=== PATIENT | female | born 1930 | race Caucasian/White ===

== ENCOUNTER 2018-12-23 10:15 | Emergency (ER) | payer OTHER ==
[~2018-12-23] VITALS: Ht 152.4 cm; Wt 72.6 kg
[2018-12-23 11:18] LABS: ABSOLUTE NEUTROPHILS 8.3 thou/uL (1.4-8.2); BASOPHILS 0.6 % (0.0-2.0); EOSINOPHILS 0.8 % (0.0-3.0); HEMATOCRIT 38.5 % (37.0-47.0); LYMPHOCYTES 12.8 % (24.0-44.0); MCH 30.5 pg (26.0-34.0); MCHC 33.9 g/dL (28.0-37.0); MONOCYTES 5.2 % (1.0-8.0); PLATELET COUNT 162 thou/uL (150-400); POLYS 80.6 % (36.0-66.0); RBC 4.28 mil/uL (4.20-5.00); RDW 13.8 % (10.5-14.5); WBC 10.3 thou/uL (4.0-11.0)
[2018-12-23 11:22] LABS: ANION GAP 8 mmol/L (7-16); BUN 11 mg/dL (7-18); CALCIUM 9.4 mg/dL (8.5-10.1); CHLORIDE 102 mmol/L (98-107); CO2 27 mmol/L (21-32); CREATININE 0.5 mg/dL (0.6-1.0); GLUCOSE 118 mg/dL (74-106); POTASSIUM 3.9 mmol/L (3.5-5.1); SODIUM 137 mmol/L (136-145)
[2018-12-23 11:30] LABS: TROPONIN-I <0.06 ng/mL (<0.06)
[2018-12-23] MEDS ORDERED: SYNTHROID75 MCG PO (11:43)
[2018-12-23] MEDS ORDERED: VITAMIN E400 UNIT PO (11:44)
[2018-12-23] MEDS ORDERED: UNICOMPLEX M TA1 TA1 PO (11:45)
--- NOTE | 2018-12-23 13:51 | EKG ---
[facility] [employer] [address] ELECTROCARDIOGRAM REPORT Name: LILLIAM ALVARENGA Room #: [facility] Chirag#: [id number] ������������������ Admission: 12/23/18 ������������������ Attend Phys: Discharge: ������������������ Date of : 34 Report #: [id number] ����������������������������������������������������������������� [id number] THIS REPORT FOR: //name// [facility] ED Test Date: 2018-12-23 Test Time: 10:20:47 Pat Name: LILLIAM ALVARENGA Department: Room: Gender: F Fitter And Turner: NGUYEN : 1930 Requested By: Marta King Order Number: [id number] MD: Brandan Bonner Measurements Intervals [place] Rate: 102 P: 33 SD: 162 QRS: 37 QRSD: 83 T: 68 QT: 362 QTc: 472 Interpretive Statements Sinus tachycardia Nonspecific ST and T wave abnormality Borderline prolonged QT interval Compared to ECG 12/29/1992 12:27:00 Sinus rhythm no longer present Heart rate has increased Electronically Signed On 12-23-2018 13:51:47 CDT by Brandan Bonner [email or web address] ��������������������������������������������� <ELECTRONICALLY SIGNED> ���������������������������������������� By: Brandan Bonner MD, [facility] ��������������������������������������������� 12/23/18 1351 1020 1020 Brandan Bonnre MD, [facility] /EPI
[2018-12-23 15:56] VITALS: BP 134/65
== END 2018-12-23 15:59 | disposition home or self-care (01) ==
LOC: ER 10:15
PROVIDERS: Emergency Medicine
DX: J06.9 Acute upper respiratory infection, unspecified (principal); I10 Essential (primary) hypertension; Z88.0 Allergy status to penicillin; Z91.018 Allergy to other foods; Z98.890 Other specified postprocedural states

== ENCOUNTER 2019-07-27 17:40 | Inpatient (IN) | payer OTHER ==
[~2019-07-27] VITALS: Ht 154.9 cm; Wt 73.9 kg
[~2019-07-27 17:40] MED LIST: SYNTHROID75 MCG PO; UNICOMPLEX M TA1 TA1 PO; VITAMIN E400 UNIT PO
[2019-07-27 17:41] VITALS: BP 151/83
[2019-07-27 18:20] LABS: BASOPHILS 0.7 % (0.0-2.0); EOSINOPHILS 1.9 % (0.0-3.0); HEMATOCRIT 38.2 % (37.0-47.0); HEMOGLOBIN 12.9 gm/dL (12.0-15.0); LYMPHOCYTES 25.6 % (24.0-44.0); MCH 30.9 pg (26.0-34.0); MCHC 33.9 g/dL (28.0-37.0); MONOCYTES 7.2 % (1.0-8.0); PLATELET COUNT 136 thou/uL (150-400); POLYS 64.6 % (36.0-66.0); WBC 4.6 thou/uL (4.0-11.0)
[2019-07-27 18:28] LABS: ANION GAP 9 mmol/L (7-16); BUN 12 mg/dL (7-18); CALCIUM 9.5 mg/dL (8.5-10.1); CHLORIDE 102 mmol/L (98-107); CO2 27 mmol/L (21-32); CREATININE 0.5 mg/dL (0.6-1.0); GLUCOSE 134 mg/dL (74-106); SODIUM 138 mmol/L (136-145)
[2019-07-27 18:29] LABS: POTASSIUM 3.7 mmol/L (3.5-5.1)
[2019-07-27 18:38] LABS: ALBUMIN 3.4 g/dL (3.4-5.0); SGOT 32 U/L (15-37); SGPT 29 U/L (30-65); TOTAL BILIRUBIN 0.8 mg/dL (<0.1-1.0); TOTAL PROTEIN 7.5 g/dL (6.4-8.2); TROPONIN-I <0.06 ng/mL (<0.06)
[2019-07-27 18:56] LABS: URINE BILIRUBIN NEGATIVE (Negative); URINE BLOOD TRACE (Negative); URINE CLARITY CLEAR; URINE COLOR YELLOW; URINE GLUCOSE-RANDOM* NEGATIVE (Negative); URINE KETONES NEGATIVE (Negative); URINE LEUKOCYTES-REFLEX TRACE (Negative); URINE NITRITE-REFLEX NEGATIVE (Negative); URINE PROTEIN (DIPSTICK) NEGATIVE (Negative); URINE SPECIFIC GRAVITY 1.015 (1.005-1.035)
[2019-07-27 20:44] VITALS: BP 151/83
[2019-07-27 21:25] VITALS: BP 155/71
[2019-07-27 21:40] VITALS: BP 177/89
[2019-07-28 00:27] VITALS: BP 135/67
[2019-07-28 04:18] VITALS: BP 142/60
[2019-07-28] MEDS ORDERED: [UNRECOGNIZED DRUG - OTHER] PAD (04:56)
[2019-07-28] MEDS ORDERED: BENEFIBER152 GM PO (04:59)
[2019-07-28 05:04] LABS: CALCIUM 8.7 mg/dL (8.5-10.1); CREATININE 0.5 mg/dL (0.6-1.0); POTASSIUM 3.7 mmol/L (3.5-5.1)
[2019-07-28 05:11] LABS: CHOLESTEROL 170 mg/dL (<200); HDL CHOLESTEROL 60 mg/dL (>40); LDL CHOLESTEROL 103 mg/dL (<100); TC:HDL 2.8 Ratio (Not establshd); TRIGLYCERIDE 37 mg/dL (<150); VLDL 7 mg/dL (<40)
[2019-07-28 05:13] LABS: SERUM ASSESSMENT Clear
[2019-07-28 05:36] LABS: FOLIC ACID 19.8 ng/mL (8.6-58.9); TSH 1.899 uIU/mL (0.358-3.740)
--- NOTE | 2019-07-28 06:42 | NUR ---
EARLY EVENING ADMIT FROM ER. ADMIT COMPLETED, MED REC FINISHED, CARE PLAN INITIATED. PT UP WITH STANDBY AND SHE USES CANE AT HOME. NON SLIP SOCKS BEING WORN BY PT. POC WITH IVF GTT. PT IS A/O X4. VSS. HOURLY ROUNDING.
[2019-07-28 07:43] VITALS: BP 153/78
--- NOTE | 2019-07-28 10:22 | EKG ---
[address] [place] [address] ELECTROCARDIOGRAM REPORT Name: LILLIAM ALVARENGA Room #: 356-P ADM IN M.R.#: [id number] Admission: 07/27/19 Attend Phys: Zane Sinclair MD Discharge: Date of : 32 Report #: [id number] THIS REPORT FOR: //name// [facility] ED Test Date: 2019-07-27 Test Time: 17:50:09 Pat Name: LILLIAM ALVARENGA Department: Room: 356 Gender: F [employer] Leader: WILL : 1930 Requested By: Virgilio Benoit Order Number: [id number] MD: Simon Solorzano Measurements Intervals [place] Rate: 99 P: 40 VT: 172 QRS: 38 QRSD: 84 T: 58 QT: 367 QTc: 471 Interpretive Statements Sinus rhythm Borderline T wave abnormalities Compared to ECG 12/23/2018 10:20:47 T-wave abnormality now present Sinus tachycardia no longer present ST (T wave) deviation no longer present Electronically Signed On 07-28-2019 10:21:52 MANAGER CULTURE by Simon Solorzano [email or web address] <ELECTRONICALLY SIGNED> By: Simon Solorzano MD 07/28/19 1021 49 175 Simon Solorzano MD /SONA
[2019-07-28 11:22] VITALS: BP 155/82
[2019-07-28 16:29] VITALS: BP 152/90
[2019-07-28 20:40] VITALS: BP 150/90
[2019-07-29 03:11] VITALS: BP 160/87
--- NOTE | 2019-07-29 03:18 | NUR ---
SLEPT MOST OF SHIFT. UP IN ROOM WITH CANE WITH STEADY GAIT. WORKING ON GOALS AND PLAN OF CARE FOR NOC. PROGRESSING SLOWLY TOWARDS DISCHARGE GOALS. MAINTAIN SAFE ENVIRONMENT. DENIES COMPLAINTS AT THIS TIME. STATES HEADACHE IS GONE. FALL PRECAUTIONS REMOVED. CONTINUE TO ASSES CLOSELY.
[2019-07-29 08:10] VITALS: BP 147/71
[2019-07-29] MEDS ORDERED: ADULT ASPIRIN R81 MG PO (08:52)
--- NOTE | 2019-07-29 09:49 | 2DMMODE ---
[facility] [address] [place] [address] 2 D/M-MODE ECHOCARDIOGRAM Name: LILLIAM ALVARENGA Room #: 356-P ADM IN M.R.#: [id number] Admission: 07/27/19 Attend Phys: Tyron Mtz Discharge: Date of : 32 Report #: [id number] THIS REPORT FOR: //name// APPROVED REPORT Study performed: 07/29/2019 08:12:09 EXAM: Comprehensive 2D, Doppler, and color-flow Echocardiogram Patient Location: Bedside Room #: 356 Status: routine BSA: 1.71 HR: 77 bpm BP: 160/87 mmHg Other Information Study Quality: Adequate Indications Palpitations Near syncope 2D Dimensions RVDd: 26.05 mm IVSd: 13.13 (7-11mm) LVOT Diam: 19.94 (18-24mm) LVDd: 41.72 mm PWd: 11.27 (7-11mm) Ascending Ao: 31.02 (22-36mm) LVDs: 30.75 (25-40mm) Aortic Root: 30.75 mm IVC: 24.00 mm Volumes Left Atrial Volume (Systole) Single Plane 4CH: 34.17 mL Single Plane 2CH: 49.89 mL LA ESV Index: 29.00 mL/m2 Aortic Valve AoV Peak Zafar.: 1.29 m/s AO Peak Gr.: 6.62 mmHg LVOT Max P.15 mmHg LVOT Max V: 0.89 m/s KIKO Vmax: 2.15 cm2 AI Vmax: 4.82 m/s AI Gregg: 4.13 m/s2 AI PHT: 338.23 ms Mitral Valve [facility] [address] [place] [address] 2 D/M-MODE ECHOCARDIOGRAM Name: LILLIAM ALVARENGA Room #: 356-P [facility] IN .R.#: [id number] Admission: 07/27/19 Attend Phys: Tyron Mtz Discharge: Date of : 32 Report #: [id number] E/A Ratio: 0.7 MV Decel. Time: 205.32 ms MV E Max Zafar.: 0.87 m/s MV A Zafar.: 1.21 m/s MV PHT: 59.54 ms IVRT: 148.79 ms Pulmonary Valve PV Peak Zafar.: 0.97 m/s PV Peak Gr.: 3.81 mmHg Pulmonary Vein P Vein S: 0.58 m/s P Vein A: 0.38 m/s P Vein D: 0.29 m/s P Vein A Dur.: 128.0 msec P Vein S/D Ratio: 2.00 Tricuspid Valve TR Peak Zafar.: 2.52 m/s RAP Estimate: 10.00 mmHg TR Peak Gr.: 25.43 mmHg PA Pressure: 35.00 mmHg Left Ventricle The left ventricle is normal size. Mild concentric left ventricular hypertrophy. The left ventricular systolic function is normal. The left ventricular ejection fraction is within the normal range. LVEF is 55-60%. Mild diastolic dysfunction is present (impaired relaxation pattern). Right Ventricle The right ventricle is normal size. The right ventricular systolic function is normal. Atria The left atrium size is normal. The right atrium size is normal. Aortic Valve The Aortic valve is sclerotic. Mild to moderate aortic regurgitation. There is no aortic valvular stenosis. Mitral Valve The mitral valve is normal in structure. Mild mitral regurgitation. No evidence of mitral valve stenosis. Tricuspid Valve The tricuspid valve is normal in structure. Mild tricuspid regurgitation. PAP is estimated at 35 mmHg. [facility] [place] [address] 2 D/M-MODE ECHOCARDIOGRAM Name: LILLIAM ALVARENGA Room #: 356-P [facility] IN M.R.#: [id number] Admission: 07/27/19 Attend Phys: Tyron Mzt Discharge: Date of : 32 Report #: [id number] Pulmonic Valve The pulmonary valve is normal in structure. Mild to moderate pulmonic regurgitation. Great Vessels The aortic root is normal in size. IVC is dilated and collapses >50% with inspiration. Pericardium There is no pericardial effusion. <Conclusion> The left ventricle is normal size. The left ventricular systolic function is normal. Mild diastolic dysfunction is present (impaired relaxation pattern). The right ventricle is normal size. The left atrium size is normal. The Aortic valve is sclerotic. Mild to moderate aortic regurgitation. Mild mitral regurgitation. Mild tricuspid regurgitation. PAP is estimated at 35 mmHg. <ELECTRONICALLY SIGNED> By: Simon Solorzano MD 07/29/19948 8 8 Simon Solorzano MD /INF
--- NOTE | 2019-07-29 09:55 | NUR ---
ASSESSMENT: CM REVIEWED CHART AND MET WITH PATIENT AT THE BEDSIDE. PT WAS ADMITTED WITH NEAR SYNCOPE. PT REPORTS THAT SHE LIVES ALONE IN A SR INDEPENDENT APT. PT REPORTS THAT SHE AMBULATES INDEPENDENTLY BUT DOES USE A CANE AT TIMES. PT REPORTS THAT IS VERY INDEPENDENT AND REPORTS THAT SHE HAS NOT HAD HH IN THE PAST NOR BEEN TO A SNF. PTS DAUGHTERS ARE ALSO PRESENT. PT REPORTS HAVING A GRAB BAR AND SHOWER CHAIR AND IS INDEPENDENT WITH ADLS. CM DISCUSSED ROLE. PT STATES SHE WILL HAVE NO NEEDS AT DISCHARGE, PT IS POSSIBLE DISCHARGE HOME TODAY. CM WILL CONTINUE TO FOLLOW.
[2019-07-29 12:46] VITALS: BP 147/71
[2019-07-29 13:49] VITALS: BP 147/71
--- NOTE | 2019-07-29 13:50 | NUR ---
Assumed care approx. 0700 this AM. Gabrielle completed this AM. Discharge orders obtained from Dr. Rodriguez. Only prescription ordered for 81 mg aspirin daily x30 days. Patient refused saying she can't take aspirin due to chronic nose bleeds. Dr. Rodriguez notified. Discharge packet went over with patient and medicare rights sheet signed. Patient leaving with daughter. All belongings noted to be with patient.
== END 2019-07-29 14:15 | disposition home or self-care (01) | DRG 312 ==
LOC: ER 17:40 → EROBS 19:49 → 3W 19:49 → ENTRNSPT 07-29 13:44 → EDTRNSPTSTS 07-29 13:46 → 3W 07-29 14:15
PROVIDERS: Emergency Medicine; Nurse Practitioner Family; ADMIT Hospitalist
DX: R55 Syncope and collapse (principal); E03.9 Hypothyroidism, unspecified; F32.9 Major depressive disorder, single episode, unspecified; N39.41 Urge incontinence; I10 Essential (primary) hypertension; Z88.0 Allergy status to penicillin; Z79.82 Long term (current) use of aspirin; Z79.899 Other long term (current) drug therapy; Z72.89 Other problems related to lifestyle
CPT/HCPCS: 10879

== ENCOUNTER 2020-01-22 15:10 | Emergency (ER) | payer OTHER ==
[~2020-01-22] VITALS: Ht 154.9 cm; Wt 72.6 kg
--- NOTE | ~2020-01-22 | EMS ---
[facility] [address] [place] [address] EMS Patient Care Report Name: LILLIAM ALVARENGA Room #: REG ESPERANZA Beard#: [id number] Admission: 01/22/20 Attend Phys: Discharge: Date of : 32 Report #: [id number] THIS REPORT FOR: //name// Report Transmitted: 01/22/2020 16:25 EMS Care Summary [facility] Incident [id number] @ 01/22/2020 14:37 Incident Location [address] [place] [address] Patient LILLIAM ALVARENGA Female, 89 Years 1930 Patient Address [address] [place] [address] [place] [address] Patient History Hypertension (HTN),Thyroid Disease, Patient Allergies Penicillin allergy, Patient Medications Amlodipine, Synthroid, Chief Complaint Weakness Disposition Transported No Lights/[place] Dispatch Reason Sick Person Transported To [facility] Narrative AOS to find patient seated in her chair, she states that she is having increased weakness that has been getting worse over the week. [facility] [address] [place] [address] EMS Patient Care Report Name: LILLIAM ALVARENGA Room #: REG Chirag#: [id number] Admission: 01/22/20 Attend Phys: Discharge: Date of : 32 Report #: [id number] Patient has a history of issues with hypertension as well as thyroid issues. She takes few medications that are self administered. Patient today tells family on scene that she has just been feeling weaker than normal. She has had minimal to no relief in all that time. She finally decided with family on scene that it would be best for her to be seen at the ED, so soon ems is called to the location. Upon our arrival patient is seen seated in her chair, she is being attended to by FD who arrived prior to our arrival. Vitals had been obtained and she is found to be WNL. She is soon transferred to the cot and is then sat down and secured. Once on the cot she is then secured via x4 safety straps and then moved to the unit and loaded in. Once inside the unit vitals are obtained and she is found to be WNL. While en route to the ED there is no further need for interventions and she is found to be able to remain stable. Care was transferred to ED staff upon our arrival to the facility.. Initial Vitals @14:51P: 102,SpO2: 95, @14:56P: 101,SpO2: 93, @14:58P: 102,R: 18,BP: 135/83,GCS: 15,SpO2: 95,Revised Trauma: 12, @14:48P: 103,R: 18,BP: 143/77,GCS: 15,SpO2: 93,Revised Trauma: 12, Assessments @HYDRAULICS ENGINEER@14:51MENTAL:No Abnormalities,SKIN:HEENT:LUNG SOUNDS:ABDOMEN:PELVIS//GI:EXTREMITIES:Left Arm: No Abnormalities,Right Arm: No Abnormalities,Left Leg: No Abnormalities,Right Leg: No Abnormalities,PULSE:NEURO:No Abnormalities, Impression Generalized Weakness Procedures @14:51ALS AssessmentResponse: UnchangedSucceeded Timeline 14:31,Call Received 14:31,Psap Call 14:35,Initial Responder On Scene 14:37,Dispatched 14:39,En Route 14:41,On Scene 14:42,At Patient 14:47,Depart Scene 14:48,BP: 143/77 M,PULSE: 103,RR: 18 R,SPO2: 93 Ox,ETCO2: ,BG: ,PAIN: ,GCS: 15, 14:51,ALS Assessment,Response: UnchangedSucceeded, 14:51,BP: / M,PULSE: 102,RR: R,SPO2: 95 Ox,ETCO2: ,BG: ,PAIN: ,GCS: , 14:56,BP: / M,PULSE: 101,RR: R,SPO2: 93 Ox,ETCO2: ,BG: ,PAIN: ,GCS: , [facility] [address] [place] [address] EMS Patient Care Report Name: LILLIAM ALVARENGA Room #: REG ESPERANZA Beard#: [id number] Admission: 01/22/20 Attend Phys: Discharge: Date of : 32 Report #: [id number] 14:58,BP: 135/83 M,PULSE: 102,RR: 18 R,SPO2: 95 Ox,ETCO2: ,BG: ,PAIN: ,GCS: 15, 15:04,At Destination 15:12,Call Closed Disclaimer v1.1 Copyright 2020 [employer] This EMS Care Summary contains data elements from the applicable legal record (which may be displayed differently). It is designed to provide pertinent information for the following purposes: continuity of care, clinical quality, and state data reporting. The complete legal record is available to ED staff and administrators of the receiving hospital in ES's Patient Tracker. All data is provided "as is."
[~2020-01-22 15:10] MED LIST changes: +ADULT ASPIRIN R81 MG PO; +BENEFIBER152 GM PO; +[UNRECOGNIZED DRUG - OTHER] PAD
[2020-01-22 15:33] LABS: URINE BILIRUBIN NEGATIVE (Negative); URINE BLOOD 1+ (Negative); URINE CLARITY CLEAR; URINE COLOR YELLOW; URINE GLUCOSE-RANDOM* NEGATIVE (Negative); URINE KETONES NEGATIVE (Negative); URINE LEUKOCYTES-REFLEX TRACE (Negative); URINE NITRITE-REFLEX NEGATIVE (Negative); URINE PROTEIN (DIPSTICK) NEGATIVE (Negative); URINE UROBILINOGEN 0.2 E.U./dl (0.2-1.0)
[2020-01-22 15:46] LABS: BACTERIA-REFLEX None Seen /HPF (None Seen); CASTS None Seen /LPF (None Seen); CRYSTALS None Seen /LPF (None Seen); SQUAMOUS None Seen /LPF (0-3); URINE RBC 0-2 Rare /HPF (0-2); URINE WBC-REFLEX 0-5 Rare /HPF (0-5)
[2020-01-22] MEDS ORDERED: VITAMIN D31250 MCG PO (15:47)
[2020-01-22 16:02] LABS: ABSOLUTE NEUTROPHILS 2.8 thou/uL (1.4-8.2); BASOPHILS 0.7 % (0.0-2.0); EOSINOPHILS 1.7 % (0.0-3.0); HEMATOCRIT 36.4 % (37.0-47.0); HEMOGLOBIN 12.6 gm/dL (12.0-15.0); LYMPHOCYTES 21.4 % (24.0-44.0); MCH 31.1 pg (26.0-34.0); MCHC 34.5 g/dL (28.0-37.0); MONOCYTES 10.5 % (1.0-8.0); PLATELET COUNT 132 thou/uL (150-400); POLYS 65.7 % (36.0-66.0); RBC 4.05 mil/uL (4.20-5.00); RDW 13.9 % (10.5-14.5); WBC 4.2 thou/uL (4.0-11.0)
[2020-01-22 16:10] LABS: ANION GAP 6 mmol/L (7-16); BUN 12 mg/dL (7-18); CALCIUM 8.9 mg/dL (8.5-10.1); CHLORIDE 101 mmol/L (98-107); CO2 28 mmol/L (21-32); CREATININE 0.5 mg/dL (0.6-1.0); GLUCOSE 106 mg/dL (74-106); POTASSIUM 4.1 mmol/L (3.5-5.1); SODIUM 135 mmol/L (136-145)
[2020-01-22 16:20] LABS: ALBUMIN 3.4 g/dL (3.4-5.0); LIPASE 60 U/L (73-393); SGOT 41 U/L (15-37); SGPT 31 U/L (30-65); TOTAL PROTEIN 7.7 g/dL (6.4-8.2); TROPONIN-I <0.06 ng/mL (<0.06)
[2020-01-22 17:31] VITALS: BP 129/65
--- NOTE | 2020-01-23 07:59 | EKG ---
[facility] [place] [address] ELECTROCARDIOGRAM REPORT Name: LILLIAM ALVARENGA Room #: DEP [facility]#: [id number] Admission: 01/22/20 Attend Phys: Discharge: 01/22/20 Date of : 32 Report #: [id number] THIS REPORT FOR: cc: Lissy Weiss MD, Melanie MD Lundgren,Brandan Wayne MD [facility] ~ THIS REPORT FOR: //name// [facility] ED Test Date: 2020-01-22 Test Time: 15:24:32 Pat Name: LILLIAM ALVARENGA Department: Room: Gender: Ct Mri Technologist: [facility] : 1930 Requested By: Virgilio Benoit Order Number: [id number] MD: Brandan Bonner Measurements Intervals [place] Rate: 95 P: 25 [place]: 172 QRS: 29 QRSD: 81 T: 81 QT: 345 QTc: 434 Interpretive Statements Sinus rhythm Nonspecific T abnormalities, lateral leads Compared to ECG 07/27/2019 17:50:09 No significant changes Electronically Signed On 01-23-2020 7:58:05 CDT by Brandan Bonner [email or web address] <ELECTRONICALLY SIGNED> By: Brandan Bonner MD, [facility] 01/23/20 0758 1524 1524 Brandan oBnner MD, [facility] /EPI
== END 2020-01-22 17:06 | disposition home or self-care (01) ==
LOC: ER 15:10
PROVIDERS: Emergency Medicine
DX: R53.1 Weakness (principal); R42 Dizziness and giddiness; Z88.0 Allergy status to penicillin; Z79.899 Other long term (current) drug therapy

== ENCOUNTER 2021-01-19 06:51 | Inpatient (IN) | payer OTHER ==
[~2021-01-19] VITALS: Ht 152.4 cm; Wt 73.6 kg
[~2021-01-19 06:51] MED LIST changes: +VITAMIN D31250 MCG PO
[2021-01-19 06:55] VITALS: BP 126/69
[2021-01-19 07:34] LABS: ABSOLUTE NEUTROPHILS 3.3 thou/uL (1.4-8.2); BASOPHILS 0.6 % (0.0-2.0); EOSINOPHILS 1.9 % (0.0-3.0); HEMATOCRIT 36.1 % (37.0-47.0); HEMOGLOBIN 12.5 gm/dL (12.0-15.0); LYMPHOCYTES 23.1 % (24.0-44.0); MCH 31.1 pg (26.0-34.0); MCHC 34.5 g/dL (28.0-37.0); MCV 90.3 fL (80.0-100.0); MONOCYTES 7.6 % (1.0-8.0); PLATELET COUNT 167 thou/uL (150-400); POLYS 66.8 % (36.0-66.0); RDW 14.1 % (10.5-14.5)
[2021-01-19 08:30] LABS: ANION GAP 8 mmol/L (7-16); BUN 10 mg/dL (7-18); CALCIUM 8.8 mg/dL (8.5-10.1); CHLORIDE 106 mmol/L (98-107); CO2 27 mmol/L (21-32); CREATININE 0.5 mg/dL (0.6-1.0); GLUCOSE 111 mg/dL (74-106); POTASSIUM 3.6 mmol/L (3.5-5.1); SODIUM 141 mmol/L (136-145)
--- NOTE | 2021-01-19 08:31 | EKG ---
[address] [place] [address] ELECTROCARDIOGRAM REPORT Name: LILLIAM ALVARENGA 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
[2021-01-19 08:40] LABS: ALBUMIN 3.3 g/dL (3.4-5.0); SGOT 20 U/L (15-37); SGPT 23 U/L (14-59); TOTAL BILIRUBIN 1.6 mg/dL (0.2-1.0); TOTAL PROTEIN 6.9 g/dL (6.4-8.2); TROPONIN-I <0.06 ng/mL (<0.06)
--- NOTE | 2021-01-19 09:41 | NUR ---
CONTACT ATTEMPTED Genevieve ELIECER DIXON DAUGHTER [facility], , MESSAGE LEFT REQUESTING RETURN CALL.
[2021-01-19 10:47] LABS: URINE BILIRUBIN NEGATIVE (Negative); URINE BLOOD TRACE (Negative); URINE CLARITY CLEAR; URINE COLOR YELLOW; URINE GLUCOSE-RANDOM* NEGATIVE (Negative); URINE KETONES NEGATIVE (Negative); URINE NITRITE-REFLEX NEGATIVE (Negative); URINE PROTEIN (DIPSTICK) NEGATIVE (Negative); URINE UROBILINOGEN 0.2 E.U./dl (0.2-1.0)
[2021-01-19 10:49] LABS: URINE LEUKOCYTES-REFLEX 1+ (Negative)
[2021-01-19 11:05] LABS: CASTS None Seen /LPF (None Seen); SQUAMOUS 0-3 Few /LPF (0-3)
[2021-01-19 11:11] LABS: BACTERIA-REFLEX None Seen /HPF (None Seen); URINE RBC 1-2 Rare /HPF (NONE SEEN); URINE WBC-REFLEX 0-5 Rare /HPF (0-5)
[2021-01-19 11:13] LABS: FOLIC ACID 46.1 ng/mL (8.6-58.9)
[2021-01-19 14:07] VITALS: BP 131/71
[2021-01-19 16:19] VITALS: BP 131/71
[2021-01-19 16:33] VITALS: BP 131/71
[2021-01-19 16:49] VITALS: BP 125/82
[2021-01-19 19:14] VITALS: BP 134/62
--- NOTE | 2021-01-19 19:53 | NUR ---
Admitted from ER due to weakness; transferred to bed safely. On MS, not on telemetry; no complains and signs of chest pain, crushing sensation and heaviness during admission. On room air. Vital signs stable. On NPO- for abdominal ultrasound; then may have heart healthy diet after ultrasound. Continent of bowel and bladder, able to use bedside commode or go to the toilet with standby assist using cane and gait belt. Falls bundle in place. With NS at 75cc/hr, infusing well at R FA. SCDS in place. No nausea, no vomiting and no abdominal pain noted. Admission assessment, history and education done- acknowledged understanding. To continue monitoring patient. No complains of pain made during assessment. Pt showed that she has a heart monitor placed at ER by cardio group this AM. Belongings documented. To continue monitoring patient.
[2021-01-20 03:30] VITALS: BP 133/69
--- NOTE | 2021-01-20 04:00 | NUR ---
ASSUMED PT CARE AT AROUND 1915 HRS. PT IS ALERT AND ORIENTED. PT DENIES ANY CHEST PAIN OR PRESSURE. HOLTER MONITOR IN PLACE.PT REQUIRES SBA TO THE BATHROOM, VOIDING OKAY-NO EPISODES OF DIZZINESS. AFEBRILE. ROOM AIR-NO RESP DISTRESS.CALLS APPROPRIATELY.
[2021-01-20 05:23] LABS: ABSOLUTE NEUTROPHILS 3.5 thou/uL (1.4-8.2); BASOPHILS 0.6 % (0.0-2.0); EOSINOPHILS 2.4 % (0.0-3.0); HEMATOCRIT 35.3 % (37.0-47.0); HEMOGLOBIN 11.9 gm/dL (12.0-15.0); LYMPHOCYTES 27.7 % (24.0-44.0); MCH 31.1 pg (26.0-34.0); MCHC 33.7 g/dL (28.0-37.0); MCV 92.2 fL (80.0-100.0); MONOCYTES 7.7 % (1.0-8.0); PLATELET COUNT 143 thou/uL (150-400); POLYS 61.6 % (36.0-66.0); RBC 3.83 mil/uL (4.20-5.00); WBC 5.7 thou/uL (4.0-11.0)
[2021-01-20 05:43] LABS: CALCIUM 8.3 mg/dL (8.5-10.1); CREATININE 0.7 mg/dL (0.6-1.0); MAGNESIUM 1.7 mg/dL (1.8-2.4); POTASSIUM 4.1 mmol/L (3.5-5.1)
[2021-01-20 07:52] VITALS: BP 130/65
--- NOTE | 2021-01-20 13:03 | NUR ---
ASSUMED PT CARE THIS AM. PT VSS, A&0X4. PATIENT PLEASANT AND ABLE TO MAKE NEEDS KNOWN. PATIENT REMAINS CONTINENT, UP WITH ASSIST TO THE BATHROOM. PATIENT REPORING NO PAIN AT THIS TIME. REPORTING NO NUMBNESS, TINGLING, AND NO CHEST PAIN. ON ROOM AIR. MEDS GIVEN WITHOUT ISSUE. IV PATENT, FLUIDS DISCONTINUED THIS DAY. FALL PRECAUTIONS ARE IN PLACE.
[2021-01-20] MEDS ORDERED: BAYER CHEWABLE81 MG PO (13:22)
[2021-01-20] MEDS ORDERED: LEVOFLOXACIN500 MG PO (13:22)
[2021-01-20 13:56] VITALS: BP 130/65
[2021-01-20 14:49] VITALS: BP 130/65
--- NOTE | 2021-01-20 14:54 | NUR ---
Superior Court Judge visited with the pt and her dtr Tasia this am. The pt is a&ox4 and lives in the [facility] apts at [facility]. She uses a cane and normally does her own adl's. Dtrs are supportive and can help as needed with appts. The pt has 2 meds and manages them on her own. She denies any hh,snf or rehab in the past. She is open to hh f/u at dc and any dme recommendations. Dc this afternoon noted. CT scan this am neg. Therapy recommending hh f/u and a rwalker. Superior [address] Judge discussed the recommendations with the pt at bedside and dtr Tasia via phone. Dtr to transport. Rwalker setup per Raghu for delievery to her room. Referral to [facility] as the pt denies preference and they accept her ins plan. Nursing to call the dtr once her rwalker has been delievered. Pcp and Cardiology f/u recommended. Pt's pcp is Dr. Lissy Weiss. Care team updated with dc plan for home with hh and rwalker this afternoon.
[2021-01-20 15:54] VITALS: BP 155/77
== END 2021-01-20 18:12 | disposition home health service (06) | DRG 690 ==
LOC: ER 06:51 → 2N 10:09 → EROBS 10:09 → 2N 16:35
PROVIDERS: Emergency Medicine; Nurse Practitioner; ADMIT Hospitalist; ATTEND Hospitalist
DX: N39.0 Urinary tract infection, site not specified (principal); E86.0 Dehydration; I10 Essential (primary) hypertension; R53.81 Other malaise; E03.9 Hypothyroidism, unspecified; Z60.2 Problems related to living alone; R07.89 Other chest pain; E55.9 Vitamin D deficiency, unspecified; R63.4 Abnormal weight loss; Z68.31 Body mass index [BMI] 31.0-31.9, adult; Z79.82 Long term (current) use of aspirin; Z88.0 Allergy status to penicillin; Z88.2 Allergy status to sulfonamides; Z88.8 Allergy status to other drugs, medicaments and biological substances; Z86.73 Personal history of transient ischemic attack (TIA), and cerebral infarction without residual deficits; Z79.899 Other long term (current) drug therapy
CPT/HCPCS: 10797

== ENCOUNTER 2021-02-04 06:30 | Emergency (ER) | payer OTHER ==
[~2021-02-04] VITALS: Ht 152.4 cm; Wt 71.7 kg
--- NOTE | ~2021-02-04 | EMS ---
[facility] [address] [place] [address] EMS Patient Care Report Name: LILLIAM ALVARENGA Room #: DEP ESPERANZA Beard#: [id number] Admission: 02/04/21 Attend Phys: Discharge: 02/04/21 Date of : 32 Report #: [id number] THIS REPORT FOR: //name// Report Transmitted: 02/04/2021 09:38 EMS Care Summary [facility] Incident [id number] @ 02/04/2021 05:50 Incident Location [address] [place] [address] Patient KEYON ALVARENGA Female, 89 Years 1930 Patient Address [address] [place] [address] Patient History None Reported, Patient Allergies Aspirin,Penicillin allergy, Patient Medications None Reported, Chief Complaint WEAKNESS Disposition Transported No Lights/[place] Dispatch Reason Breathing Problem Transported To [facility] Narrative DISPATCHED EMERGENT RESPONDED EMERGENT ON A BREATHING PROBLEM. MEET P52 ON SCENE. ARRIVED ON SCENE WITHOUT INCIDENT. [facility] [address] [place] [address] EMS Patient Care Report Name: LILLIAM ALVARENGA Room #: DEP ER Chirag#: [id number] Admission: 02/04/21 Attend Phys: Discharge: 02/04/21 Date of : 32 Report #: [id number] UPON ARRIVAL PATIENT WAS FOUND SEATED IN LIVING ROOM OF RESIDENCE COMPLAINING OF GENERALIZED WEAKNESS FOR 1 MONTH. PATIENT STATES IT HAS BEEN GETTING PROGRESSIVELY WORSE TIME GOES BY. PATIENT STATES SHE WAS IN THE HOSPITAL MONDAY AND MONDAY FOR THIS WELL AND WAS TOLD SHE HAD A UTI AND WAS DEHYDRATED. PATIENT FEELS SHE HAS NOT IMPROVED AFTER BEING HOME AND IS WANTING TO BE TRANSPORTED TO [facility] FOR FURTHER EVALUATION. PATIENT DENIES CHEST PAIN, SHORTNESS OF BREATH, DIZZINESS, NAUSEA, DIARRHEA. PATIENT JUST REPORTS FEELING WEAK. NO ARM DRIFT, NO SLURRED SPEECH, NO FACIAL DROOP NOTED AT THIS TIME. PATIENT IS ASSISTED AND PIVOTED ONTO STRETCHER. SECURED WITH RESTRAINTS AND TAKEN TO AMBULANCE. EN ROUTE PATIENT DENIES ANY NEW COMPLAINTS. NO CHANGE IN CURRENT COMPLAINTS. PATIENT REMAINS CALM AND COOPERATIVE ON STRETCHER, NO CHANGES NOTED UPON REASSESSMENT AND VITALS MONITORED THROUGHOUT TRANSPORT. RADIO REPORT CALLED TO ED. UPON ARRIVAL TO ED PATIENT IS TAKEN TO ED ROOM 9 WHERE PATIENT REPORT IS GIVEN DIRECTLY TO RN AT BEDSIDE. PATIENT IS ABLE TO SCOOT FROM STRETCHER TO BED WITHOUT DIFFICULTY. PATIENT CARE TRANSFERRED DIRECTLY TO RN AT BEDSIDE. PATIENT IN STABLE CONDITION AT TRANSFER OF CARE. Initial Vitals @06:19P: 86,CO: 2,SpO2: 95, @06:06P: 96,CO: 1,SpO2: 94, @06:05Pain: 0/10,CO Suspected: false @06:09P: 90,CO: 1,SpO2: 95, @06:14P: 83,CO: 1,SpO2: 95, @06:22P: 91,CO: 2,SpO2: 95, @PTAP: 85,R: 18,BP: 130/66,GCS: 15,Glucose: 122,SpO2: 97,Revised Trauma: 12, @06:23P: 83,R: 18,BP: 143/84,Pain: 0/10,GCS: 15,Glucose: 122,CO: 2,SpO2: 95,Revised Trauma: 12, @06:08P: 93,R: 18,BP: 131/73,GCS: 15,Glucose: 122,CO: 1,SpO2: 95,Revised Trauma: 12, Assessments @05:59MENTAL:Person Oriented,Time Oriented,Place Oriented,Event Oriented,SKIN:HEENT:Eyes: Right Pupil: 4-mm,Eyes: Left Pupil: 4-mm,Head/Face: No Abnormalities,LUNG SOUNDS:General: No Abnormalities,ABDOMEN:General: No Abnormalities,PELVIS//GI:No Abnormalities,EXTREMITIES:Left Arm: No Abnormalities,Right Arm: No Abnormalities,Left Leg: No Abnormalities,Right Leg: No Abnormalities,PULSE:NEURO:No Abnormalities, Impression Generalized Weakness [address] [address] EMS Patient Care Report Name: LILLIAM ALVARENGA Room #: [facility] Chirag#: [id number] Admission: 02/04/21 Attend Phys: Discharge: 02/04/21 Date of : 32 Report #: [id number] Procedures @05:58ALS AssessmentResponse: UnchangedSucceeded@06:053-Lead ECGResponse: UnchangedSucceeded@06:07Lactated Ringers 600cc (18 ga) Site: Forearm-RightResponse: UnchangedSucceeded@06:0512-Lead ECGResponse: UnchangedSucceeded Timeline REGIONAL FACILITIES SPECIALIST,BP: 130/66 M,PULSE: 85,RR: 18 R,SPO2: 97 Ox,ETCO2: ,B,PAIN: ,GCS: 15, 05:41,Call Received 05:41,Psap Call 05:50,Dispatched 05:50,Initial Responder On Scene 05:53,En Route 05:56,On Scene 05:57,At Patient 05:58,ALS Assessment,Response: UnchangedSucceeded, 06:05,3-Lead ECG,Response: UnchangedSucceeded, 06:05,12-Lead ECG,Response: UnchangedSucceeded, 06:05,BP: / M,PULSE: ,RR: R,SPO2: Ox,ETCO2: ,BG: ,PAIN: 0,GCS: , 06:06,BP: / M,PULSE: 96,RR: R,SPO2: 94 Ox,ETCO2: ,BG: ,PAIN: ,GCS: , 06:07,Lactated Ringers 600cc 18 ga Site: Forearm-Right,Response: UnchangedSucceeded, 06:08,Depart Scene 06:08,BP: 131/73 M,PULSE: 93,RR: 18 R,SPO2: 95 Ox,ETCO2: ,B,PAIN: ,GCS: 15, 06:09,BP: / M,PULSE: 90,RR: R,SPO2: 95 Ox,ETCO2: ,BG: ,PAIN: ,GCS: , 06:14,BP: / M,PULSE: 83,RR: R,SPO2: 95 Ox,ETCO2: ,BG: ,PAIN: ,GCS: , 06:19,BP: / M,PULSE: 86,RR: R,SPO2: 95 Ox,ETCO2: ,BG: ,PAIN: ,GCS: , 06:22,BP: / M,PULSE: 91,RR: R,SPO2: 95 Ox,ETCO2: ,BG: ,PAIN: ,GCS: , 06:23,BP: 143/84 M,PULSE: 83,RR: 18 R,SPO2: 95 Ox,ETCO2: ,B,PAIN: 0,GCS: 15, 06:27,At Destination 06:42,Call Closed Disclaimer v1.1 Copyright 2020 [employer] This EMS Care Summary contains data elements from the applicable legal record (which may be displayed differently). It is designed to provide pertinent information for the following purposes: continuity of care, clinical quality, and state data reporting. The complete legal record is available to ED staff and administrators of the receiving hospital in [employer]'s Patient Tracker. All data is provided "as is."
[~2021-02-04 06:30] MED LIST changes: +BAYER CHEWABLE81 MG PO; +LEVOFLOXACIN500 MG PO
[2021-02-04 07:01] LABS: BASOPHILS 0.5 % (0.0-2.0); EOSINOPHILS 2.3 % (0.0-3.0); HEMATOCRIT 34.4 % (37.0-47.0); HEMOGLOBIN 11.7 gm/dL (12.0-15.0); LYMPHOCYTES 25.3 % (24.0-44.0); MCH 30.9 pg (26.0-34.0); MCV 90.7 fL (80.0-100.0); MONOCYTES 8.7 % (1.0-8.0); PLATELET COUNT 140 thou/uL (150-400); POLYS 63.2 % (36.0-66.0); RDW 13.9 % (10.5-14.5); WBC 4.7 thou/uL (4.0-11.0)
[2021-02-04 07:05] LABS: CALCIUM 8.7 mg/dL (8.5-10.1); CREATININE 0.5 mg/dL (0.6-1.0); POTASSIUM 3.4 mmol/L (3.5-5.1)
[2021-02-04 07:06] LABS: URINE BILIRUBIN NEGATIVE (Negative); URINE BLOOD TRACE (Negative); URINE CLARITY CLEAR; URINE COLOR YELLOW; URINE GLUCOSE-RANDOM* NEGATIVE (Negative); URINE KETONES NEGATIVE (Negative); URINE LEUKOCYTES-REFLEX NEGATIVE (Negative); URINE NITRITE-REFLEX NEGATIVE (Negative); URINE PROTEIN (DIPSTICK) NEGATIVE (Negative); URINE UROBILINOGEN 0.2 E.U./dl (0.2-1.0)
[2021-02-04 07:11] LABS: ALBUMIN 3.1 g/dL (3.4-5.0); DIRECT BILIRUBIN 0.3 mg/dL (<0.1-0.2); TOTAL BILIRUBIN 1.1 mg/dL (0.2-1.0)
[2021-02-04 09:30] VITALS: BP 135/63
== END 2021-02-04 09:54 | disposition home or self-care (01) ==
LOC: ER 06:30
PROVIDERS: Emergency Medicine
DX: R53.1 Weakness (principal); Z20.822 Contact with and (suspected) exposure to COVID-19; I10 Essential (primary) hypertension; Z98.890 Other specified postprocedural states; Z88.0 Allergy status to penicillin; Z88.1 Allergy status to other antibiotic agents; Z88.2 Allergy status to sulfonamides

== ENCOUNTER → 2021-02-08 | Outpatient (CLI) | payer OTHER | LOC: SJCVCIMAG 09:19 | PROVIDERS: ATTEND Internal Medicine | DX: I08.3 Combined rheumatic disorders of mitral, aortic and tricuspid valves (principal); R94.31 Abnormal electrocardiogram [ECG] [EKG]; I10 Essential (primary) hypertension; R00.2 Palpitations; R42 Dizziness and giddiness; E78.5 Hyperlipidemia, unspecified; E03.9 Hypothyroidism, unspecified; Z88.0 Allergy status to penicillin; Z88.2 Allergy status to sulfonamides; Z88.8 Allergy status to other drugs, medicaments and biological substances; Z72.89 Other problems related to lifestyle; Z79.899 Other long term (current) drug therapy ==

== ENCOUNTER 2021-05-07 12:51 | Inpatient (IN) | payer OTHER ==
[~2021-05-07] VITALS: Ht 154.9 cm; Wt 72.6 kg
--- NOTE | ~2021-05-07 | O ---
[facility] [place] [address] OPERATIVE REPORT Name: LILLIAM ALVARENGA Room #: 439-P ADM IN M.R.#: [id number] Admission: 05/07/21 Attend Phys: Zane Sinclair MD Discharge: Date of : 34 Report #: [id number] THIS REPORT FOR: cc: Lissy Weiss MD, Melanie MD Patterson,Alfredo James MD ~ DATE OF SERVICE: 05/07/2021 PREOPERATIVE DIAGNOSIS: Incarcerated left inguinal hernia. POSTOPERATIVE DIAGNOSIS: Incarcerated left inguinal hernia. OPERATION: Laparoscopic repair of incarcerated left inguinal hernia with mesh. SURGEON: Alfredo Palomares MD ANESTHESIA: General. ESTIMATED BLOOD LOSS: Minimal. SPECIMENS: None. DESCRIPTION OF PROCEDURE: After informed consent was obtained, the patient was brought to the operating room and placed supine. SCDs were placed and working. Preoperative antibiotics were administered, general anesthesia was induced. The abdomen was prepped and draped in the usual sterile fashion. Lares catheter had already been placed. A 10 mm incision was made above the umbilicus. Fascia was incised and a trocar was placed. Pneumoperitoneum was established. A right lower quadrant 5 mm trocar was placed under direct vision. The patient was placed in the Trendelenburg position. The left ASIS was scored. The peritoneum was then incised and reflected inferiorly. This allowed visualization of the space. The round ligament was identified. She had an incarcerated direct inguinal hernia. This was carefully reduced. The small bowel had been reduced on its own. I examined the small bowel and there was no evidence of ischemia. I then inserted a large Bard 3DMax mesh. It was tacked to Drake's ligament with 2 absorbable tacks. I then reapproximated the peritoneum over the mesh. There was 100% coverage of the mesh. The ports were then removed under direct vision. The fascia was closed with a [id number] 0 Vicryl. Skin was closed with 4-0 Monocryl. Incisions were [facility] [address] [place] [address] OPERATIVE REPORT Name: LILLIAM ALVARENGA Room #: 439-P [facility] IN M.R.#: [id number] Admission: 05/07/21 Attend Phys: Zane Sinclair MD Discharge: Date of : 34 Report #: [id number] dressed with Steri-Strips. COMPLICATIONS: None. DISPOSITION: The patient was taken to recovery in satisfactory condition. By: [id number] Alfredo Palomares MD /nt
--- NOTE | ~2021-05-07 | EMS ---
[facility] [address] [place] [address] EMS Patient Care Report Name: LILLIAM ALVARENGA Room #: 439-P [facility] IN M.R.#: [id number] Admission: 05/07/21 Attend Phys: Zane Sinclair MD Discharge: 05/09/21 Date of : 34 Report #: [id number] THIS REPORT FOR: //name// Report Transmitted: 05/11/2021 11:03 EMS Care Summary [facility] Incident [id number] @ 05/07/2021 12:10 Incident Location [address] [place] [address] [place] [id number] Patient KEYON ALVARENGA Female, 89 Years 1930 Patient Address [address] [place] [address] [place] [id number] Patient History None Reported, Patient Allergies No known allergies, Patient Medications None Reported, Chief Complaint my whole stomach hurts Disposition Transported No Lights/[place] Dispatch Reason Sick Person Transported To [facility] Narrative SQUAD 52 DISPATCHED TO A SICK CASE [facility] [address] [place] [address] EMS Patient Care Report Name: LILLIAM ALVAREGNA Room #: 439-P DIS IN MNorbert.#: [id number] Admission: 05/07/21 Attend Phys: Zane Sinclair MD Discharge: 05/09/21 Date of : 34 Report #: [id number] AOS TO FIND A 89 Y/O FEMALE SITTING UPRIGHT ON HER COUCH STATING THAT HER WHOLE STOMACH JUST STARTED HURTING ABOUT 30 MIN AGO AND THAT SHE HAS NEVER FELT ANYTHING LIKE IT BEFORE AND THAT IT IS A SHARP PAIN FEELING. PT DENIES ANY RECENT TRAUMA, LOC, FERRARA, NVD, SOB, CP WITH A GCS OF 15. INITIAL EXAM REVEALED AIRWAY INTACT, PUPILS PERRL, TRACHEA MID-LINE, LUNG SOUNDS CLEAR X 4 BILAT, ABD TENDER ALL OVER WITH NO REBOUND TENDERNESS, STRONG DISTAL PULSES PRESENT IN ALL EXTREMITIES, ALL VS ARE WNL FOR PT AT THIS TIME. WHILE EN ROUTE RADIO REPORT GIVEN TO [facility]. 18G IV PLACED IN HER LAC AND FLUSHED WITH 10ML OF NACI, ALL VS REASSESSED AND ALL VS REMAINED UNCHANGED, WE ARRIVED AT OUR DESTINATION AND TRANSFERRED PT CARE OVER TO RN LUCERO ROOM 13 WAS NOT ABLE TO OBTAIN A FACESHEET DUE TO NO STAFF AROUND THEY WERE VERY BUSY Initial Vitals @12:29P: 77,R: 18,BP: 142/78,Pain: 2/10,GCS: 15,SpO2: 99,Revised Trauma: 12, @12:28P: 82,R: 18,BP: 154/86,Pain: 2/10,GCS: 15,SpO2: 98,Revised Trauma: 12,DC Suspected: false Assessments @12:24MENTAL:No Abnormalities,SKIN:No Abnormalities,HEENT:Head/Face: No Abnormalities,Eyes: No Abnormalities,Neck/Airway: No Abnormalities,LUNG SOUNDS:Left Lower: Tenderness,Left Upper: Tenderness,Right Lower: Tenderness,Right Upper: Tenderness,ABDOMEN:Left Lower: Tenderness,Left Upper: Tenderness,Right Lower: Tenderness,Right Upper: Tenderness,PELVIS//GI:EXTREMITIES:PULSE:NEURO: Impression Abdominal Pain Procedures @12:23ALS AssessmentResponse: UnchangedSucceeded@12:303-Lead ECGResponse: UnchangedSucceeded Timeline 12:00,Call Received 12:00,Psap Call 12:05,Initial Responder On Scene 12:10,Dispatched 12:12,En Route 12:21,On Scene 12:22,At Patient 12:23,ALS Assessment,Response: UnchangedSucceeded, 12:27,Depart Scene 12:28,BP: 154/86 M,PULSE: 82,RR: 18 R,SPO2: 98 Ox,ETCO2: ,BG: ,PAIN: 2,GCS: 15, 12:29,BP: 142/78 M,PULSE: 77,RR: 18 R,SPO2: 99 Ox,ETCO2: ,BG: ,PAIN: 2,GCS: 15, [facility] [address] [place] [address] EMS Patient Care Report Name: LILLIAM ALVARENGA Room #: 439-P [facility] IN .R.#: [id number] Admission: 05/07/21 Attend Phys: Zane Sinclair MD Discharge: 05/09/21 Date of : 34 Report #: [id number] 12:30,3-Lead ECG,Response: UnchangedSucceeded, 12:50,At Destination 12:52,Transfer Patient 12:55,Call Closed Disclaimer v1.1 Copyright 2020 [employer] This EMS Care Summary contains data elements from the applicable legal record (which may be displayed differently). It is designed to provide pertinent information for the following purposes: continuity of care, clinical quality, and state data reporting. The complete legal record is available to ED staff and administrators of the receiving hospital in [employer] Patient Tracker. All data is provided "as is."
[2021-05-07 12:52] VITALS: BP 156/67
[2021-05-07 13:40] LABS: ABSOLUTE NEUTROPHILS 3.4 thou/uL (1.4-8.2); BASOPHILS 0.5 % (0.0-2.0); EOSINOPHILS 2.1 % (0.0-3.0); HEMATOCRIT 36.5 % (37.0-47.0); HEMOGLOBIN 12.3 gm/dL (12.0-15.0); LYMPHOCYTES 32.3 % (24.0-44.0); MCH 30.6 pg (26.0-34.0); MCHC 33.8 g/dL (28.0-37.0); MCV 90.6 fL (80.0-100.0); MONOCYTES 6.8 % (1.0-8.0); PLATELET COUNT 168 thou/uL (150-400); POLYS 58.3 % (36.0-66.0); RBC 4.03 mil/uL (4.20-5.00); WBC 5.9 thou/uL (4.0-11.0)
[2021-05-07 13:51] LABS: CREATININE 0.6 mg/dL (0.6-1.0); POTASSIUM 3.6 mmol/L (3.5-5.1)
[2021-05-07 14:01] LABS: ALBUMIN 3.5 g/dL (3.4-5.0); TOTAL BILIRUBIN 1.2 mg/dL (0.2-1.0); TOTAL PROTEIN 7.5 g/dL (6.4-8.2)
[2021-05-07 14:05] LABS: URINE BILIRUBIN NEGATIVE (Negative); URINE BLOOD TRACE (Negative); URINE CLARITY CLEAR; URINE COLOR YELLOW; URINE GLUCOSE-RANDOM* NEGATIVE (Negative); URINE KETONES TRACE (Negative); URINE LEUKOCYTES-REFLEX TRACE (Negative); URINE NITRITE-REFLEX NEGATIVE (Negative); URINE PROTEIN (DIPSTICK) NEGATIVE (Negative)
--- NOTE | 2021-05-07 15:20 | EKG ---
[address] [address] ELECTROCARDIOGRAM REPORT Name: LILLIAM ALVARENGA [id number] Admission: 05/07/21 Attend Phys: Discharge: Date of : 32 Report #: [id number] [facility] ED Test Date: 2021-05-07 Test Time: 12:52:46 Pat Name: LILLIAM ALVARENGA Department: Room: Gender: F Psychology Fellow: NICKOLAS : 1930 Requested By: Nya Tabares Order Number: [id number] MD: Claude Madison Measurements Intervals [place] Rate: 69 P: 5 OR: 180 QRS: 28 QRSD: 80 T: 42 QT: 466 QTc: 500 Interpretive Statements Sinus rhythm Borderline prolonged QT interval Compared to ECG 01/19/2021 07:16:51 T-wave abnormality no longer present Electronically Signed On 05-07-2021 15:20:08 CDT by Claude Madison [email or web address] <ELECTRONICALLY SIGNED> By: Claude Madison MD, [facility] 05/07/21 1520 1252 1252 Claude Madison MD, [facility] /EPI
[2021-05-07 16:58] VITALS: BP 158/66
--- NOTE | 2021-05-07 17:45 | NUR ---
89-year-old female with past medical history of breast cancer, hypothyroidism presented to the ED on 05-07-21 via EMS for a sudden onset of lower abdominal pain. Patient was seen by her primary care physician yesterday for evaluation for 3 to 4-week history of weakness and dehydration. Per the patient her PCP called this am and noted she had a UTI that she would need antibiotics. She has not started those yet. Per the patient she has been fully vaccinated with Pfizer and ID now in the ED is Negative. In the ED per CT noted wo have a bowel obstruction and was admitted with such. Upon examination by surgery she reports pain that is sharp, stabbing, located in the left lower quadrant. Surgery also notes an incarcerated left inguinal hernia causing small bowel obstruction and a plan for laparoscopic left inguinal hernia repair with mesh that patient has agreed to. Patient last seen by CM and discharged on 01-20-21 and lives independently in [facility] apartments. She normally uses a cane but a rolling walker was provided to the patient on the day of discharge from December The patient's PCP is Dr. Lissy Weiss. The patients daughters are supportive and help as needed. Listed as her next of kin are daughters Tasia Thurman at [phone] and Erasto Gatica at [phone]. Anticipate as plan of care with medical team develops CM will follow for any identified needs at discharge.
[2021-05-07 20:03] VITALS: BP 152/79
--- NOTE | 2021-05-07 22:07 | NUR ---
ADMISSION ASSESSMENT COMPLETED. PT IS ALERT AND ORIENTED. CALM AND PLEASANT. ABDOMINAL LAP SITES X 3 WITH BANDAIDS ALL LOOK OKAY. PT DENIES ANY PAIN OR NAUSEA. IVF STARTED. BOWEL SOUNDS PRESENT X 4. SCDS APPLIED. FALL PREC IN PLACE. ORIENTED TO STAFF AND USE OF CALL LIGHT. VSS-AFEBRILE, ON FOR POST OP COMFORT.WILL CONTINUE WITH POC TILL EOS.
[2021-05-08 04:41] VITALS: BP 118/65
[2021-05-08 06:21] LABS: ABSOLUTE NEUTROPHILS 6.1 thou/uL (1.4-8.2); HEMOGLOBIN 12.3 gm/dL (12.0-15.0); LYMPHOCYTES 10.2 % (24.0-44.0); MCH 31.1 pg (26.0-34.0); MCHC 34.2 g/dL (28.0-37.0); PLATELET COUNT 141 thou/uL (150-400); POLYS 87.8 % (36.0-66.0); RBC 3.96 mil/uL (4.20-5.00)
[2021-05-08 06:30] LABS: CALCIUM 8.6 mg/dL (8.5-10.1); CREATININE 0.7 mg/dL (0.6-1.0); MAGNESIUM 1.9 mg/dL (1.8-2.4); POTASSIUM 4.4 mmol/L (3.5-5.1)
[2021-05-08 07:31] VITALS: BP 130/58
--- NOTE | 2021-05-08 09:54 | NUR ---
ASSUMED PT CARE THIS AM. PT HAS LAP HERNIA REPAIR YESTERDAY. PT IS ALERT & ORIENTED X4. PT HAS IV SITE ON L AC. PT IS UP WITH ASSIST X1 TO BEDSIDE COMMODE. PT HAP 3 LAP SITES WITH STERI STRIPS INTACT AND CLEAN. PT IS ON ROOM AIR. NO C/O OF PAIN, NAUSEA AND VOMITING. WILL CONTINUE TO MONITOR PT. FOLLOW POC.
[2021-05-08 15:09] VITALS: BP 126/62
[2021-05-08 19:35] VITALS: BP 129/66
--- NOTE | 2021-05-08 21:40 | NUR ---
ASSESSMENT COMPLETED. PT IS ALERT AND ORIENTED AND IN A PLEASANT MOOD. REPORTS SOME MILD ABDOMINAL PAIN-GIVEN TYLENOL. DENIES ANY NAUSEA OR VOMITING. LAP SITES LOOK GOOD. AFEBRILE. ABLE TO GET UP TO THE BSC WITH SBA. PT IS LOOKING FORWARD TO GOING HOME TOMORROW. SHE REPORTS DOING WELL WITH PT EARLIER IN THE DAY. NO FURTHER CONCERNS.
[2021-05-09 05:54] LABS: ABSOLUTE NEUTROPHILS 5.8 thou/uL (1.4-8.2); BASOPHILS 0.3 % (0.0-2.0); HEMATOCRIT 35.8 % (37.0-47.0); HEMOGLOBIN 12.1 gm/dL (12.0-15.0); LYMPHOCYTES 23.4 % (24.0-44.0); MCH 31.1 pg (26.0-34.0); MCHC 33.8 g/dL (28.0-37.0); MONOCYTES 5.5 % (1.0-8.0); PLATELET COUNT 152 thou/uL (150-400); POLYS 69.8 % (36.0-66.0); RBC 3.89 mil/uL (4.20-5.00); RDW 14.2 % (10.5-14.5); WBC 8.3 thou/uL (4.0-11.0)
[2021-05-09 06:24] LABS: ALBUMIN 3.1 g/dL (3.4-5.0); CREATININE 0.6 mg/dL (0.6-1.0); MAGNESIUM 1.6 mg/dL (1.8-2.4); PHOSPHORUS 2.5 mg/dL (2.5-4.9); TOTAL BILIRUBIN 1.1 mg/dL (0.2-1.0); TOTAL PROTEIN 6.9 g/dL (6.4-8.2)
[2021-05-09 06:31] LABS: POTASSIUM 3.4 mmol/L (3.5-5.1)
[2021-05-09 07:39] VITALS: BP 137/64
--- NOTE | 2021-05-09 10:50 | NUR ---
Assumed careof pt at 0700. Pt a&ox4. Denies pain. Surgical incision clean, dry, and well approximated. SBA. IVF infusing. Will likely go home today. Call light within reach. Fall precautions in place. Will continue to monitor.
[2021-05-09] MEDS ORDERED: ACETAMINOPHEN325 M1 PO (12:25)
[2021-05-09] MEDS ORDERED: PEPCID20 MG PO (12:25)
[2021-05-09] MEDS ORDERED: LO-DOSE ASPIRIN81 M1 PO (12:27)
[2021-05-09 13:10] VITALS: BP 137/64
== END 2021-05-09 14:03 | disposition home health service (06) | DRG 351 ==
LOC: ER 12:51 → EROBS 16:10 → TBA 16:54 → 4S 19:35
PROVIDERS: Internal Medicine; Nurse Practitioner; Nurse Practitioner Family; ADMIT Internal Medicine; ATTEND Internal Medicine
PROC: 0YU64JZ Supplement Left Inguinal Region with Synthetic Substitute, Percutaneous Endoscopic Approach (ICD-10-PCS; principal; 2021-05-07)
DX: K40.30 Unilateral inguinal hernia, with obstruction, without gangrene, not specified as recurrent (principal); N39.0 Urinary tract infection, site not specified; K56.609 Unspecified intestinal obstruction, unspecified as to partial versus complete obstruction; E87.6 Hypokalemia; E83.42 Hypomagnesemia; I10 Essential (primary) hypertension; E03.9 Hypothyroidism, unspecified; Z66 Do not resuscitate; Z20.822 Contact with and (suspected) exposure to COVID-19; Z79.899 Other long term (current) drug therapy; Z79.82 Long term (current) use of aspirin; Z88.0 Allergy status to penicillin; Z88.2 Allergy status to sulfonamides; Z88.8 Allergy status to other drugs, medicaments and biological substances; Z85.3 Personal history of malignant neoplasm of breast; Z91.041 Radiographic dye allergy status
CPT/HCPCS: 10195; 50010; 50101; 50555; 50687; 50854; 52265; 52266; 53307; 53314; 56525; 56526; 57092; 58574; 62110; 62900; 70005

== ENCOUNTER → 2021-07-14 | Outpatient (CLI) | payer OTHER ==
[~2021-07-14] MED LIST changes: +ACETAMINOPHEN325 M1 PO; +LO-DOSE ASPIRIN81 M1 PO; +PEPCID20 MG PO
== END ==
LOC: SJCVCIMAG 08:53
PROVIDERS: ATTEND Nuclear Medicine Nuclear Cardiology
DX: I87.2 Venous insufficiency (chronic) (peripheral) (principal); M79.89 Other specified soft tissue disorders; I10 Essential (primary) hypertension; E03.9 Hypothyroidism, unspecified; Z72.89 Other problems related to lifestyle; Z88.1 Allergy status to other antibiotic agents; Z88.0 Allergy status to penicillin; Z88.8 Allergy status to other drugs, medicaments and biological substances; Z88.2 Allergy status to sulfonamides; Z79.899 Other long term (current) drug therapy

== ENCOUNTER → 2021-08-17 | Outpatient (CLI) | payer OTHER | LOC: SJCVC 10:01 | PROVIDERS: ATTEND Internal Medicine | DX: R94.31 Abnormal electrocardiogram [ECG] [EKG] (principal); I10 Essential (primary) hypertension; E78.5 Hyperlipidemia, unspecified; R00.2 Palpitations; I87.2 Venous insufficiency (chronic) (peripheral); E03.9 Hypothyroidism, unspecified; Z79.899 Other long term (current) drug therapy; Z88.8 Allergy status to other drugs, medicaments and biological substances ==